=== PATIENT | female | born 1955 | race Caucasian/White ===

== ENCOUNTER → 2020-01-09 16:00 | Outpatient (BNVA) | payer BC, SELFPAY | PROVIDERS: Family Provider Internal Medicine; PCP Internal Medicine; Visit Provider Internal Medicine | DX: E78.5 Hyperlipidemia, unspecified (principal); I10 Essential (primary) hypertension; K75.81 Nonalcoholic steatohepatitis (NASH); E03.9 Hypothyroidism, unspecified | CPT/HCPCS: 80053; 80061; 84443; 85025 ==

== ENCOUNTER 2020-01-25 14:37 | Outpatient (CLI) | payer BC, SELFPAY ==
--- NOTE | 2020-01-25 14:42 | MM_ITS ---
WS: [id number] BILATERAL SCREENING DIGITAL MAMMOGRAM WITH CAD HISTORY: SCREENING COMPARISON: 09/20/2018, 09/04/2017, 02/16/2013 Bilateral CC and MLO views submitted. Computer aided detection analyzed. Breast composition: There are scattered areas of fibroglandular density. No suspicious masses, microc alcifications or architectural distortion. Stable scattered asymmetries and calcifications. No suspic ious mass. MM/[place] [id number] IMPRESSION: BI-RADS: 2-Benign FOLLOW UP: 1 Year Follow-up
== END 2020-01-25 14:38 | disposition home or self-care (01) ==
LOC: RADSHAW 14:41
PROVIDERS: Family Provider Internal Medicine; PCP Internal Medicine; Visit Provider Internal Medicine
DX: Z12.31 Encounter for screening mammogram for malignant neoplasm of breast (principal)
CPT/HCPCS: 77067

== ENCOUNTER → 2020-02-15 09:08 | Outpatient (BNVA) | payer BC, SELFPAY | PROVIDERS: Family Provider Internal Medicine; PCP Internal Medicine; Visit Provider Internal Medicine | DX: E78.5 Hyperlipidemia, unspecified (principal); I10 Essential (primary) hypertension; K75.81 Nonalcoholic steatohepatitis (NASH); E03.9 Hypothyroidism, unspecified; R74.8 Abnormal levels of other serum enzymes; R53.83 Other fatigue | CPT/HCPCS: 80053 ==

== ENCOUNTER 2020-03-02 11:22 | Outpatient (CLI) | payer BC, SELFPAY ==
[2020-03-02 12:39] LABS: Creatine Phosphokinase 59 U/L (26-192); Ferritin 412 ng/mL (15-150)
[2020-03-02 13:13] LABS: Erythrocyte Sedimentation Rate 37 mm/hr (0-15)
[2020-03-02 13:42] LABS: Hepatitis A Antibody IgM Non-Reactive (Nonreactive); Hepatitis B Core AB, Total Non-Reactive (Nonreactive); Hepatitis B Surface AB 18.3 (0-8.5); Hepatitis B Surface Antigen Non-Reactive (Nonreactive); Hepatitis C Virus Antibody Non-Reactive (Nonreactive)
[2020-03-02 14:20] LABS: Tumor Marker Alpha Fetoprotein 10.2 ng/mL (0-8.3)
[2020-03-05 12:21] LABS: COMPLEMENT COMPONENT C3C 149 mg/dL (83-193); COMPLEMENT COMPONENT C4C 25 mg/dL (15-57); COMPLEMENT, TOTAL (CH50) 51 U/mL (31-60)
[2020-03-05 13:17] LABS: Lyme AB Screen <0.90 index
[2020-03-05 14:17] LABS: CENTROMERE B ANTIBODY <1.0 NEG AI (<1.0 NEG); JO-1 ANTIBODY <1.0 NEG AI (<1.0 NEG); RNP ANTIBODY <1.0 NEG AI (<1.0 NEG); SCL-70 ANTIBODY <1.0 NEG AI (<1.0 NEG); SJOGREN'S ANTIBODY (SS-A) <1.0 NEG AI (<1.0 NEG); SM ANTIBODY <1.0 NEG AI (<1.0 NEG)
[2020-03-05 14:46] LABS: Alpha 1 Antitrypsin 223 mg/dL (83-199); Ceruloplasmin 34 mg/dL (18-53)
[2020-03-05 17:13] LABS: E. Chaffeensis AB IGG <1:64; E. Chaffeensis AB IGM <1:20
[2020-03-06 14:22] LABS: ANA SCREEN, IFA NEGATIVE (NEGATIVE); THYROID PEROXIDASE ANTIBODIES <1 IU/mL (<9)
[2020-03-06 16:47] LABS: RMSF IGG NOT DETECTED; RMSF IGM NOT DETECTED
[2020-03-06 23:57] LABS: DNA AB (DS) CRITHIDIA,IFA NEGATIVE (NEGATIVE)
== END 2020-03-02 11:23 | disposition home or self-care (01) ==
LOC: LAB 11:41
PROVIDERS: PCP Internal Medicine; Visit Provider Internal Medicine
DX: R74.0 Nonspecific elevation of levels of transaminase and lactic acid dehydrogenase [LDH] (principal)
CPT/HCPCS: 36415; 82103; 82105; 82390; 82550; 82728; 85651; 86618; 86666; 86705; 86706; 86709; 86757; 86803; 87340

== ENCOUNTER 2021-01-28 09:54 | Outpatient (CLI) | payer MEDICARE, BC, SELFPAY ==
--- NOTE | 2021-01-28 10:01 | MM_ITS ---
WS: [id number] SCREENING DIGITAL MAMMOGRAM WITH CAD HISTORY: SCREENING COMPARISON: 01/25/2020, July 23, 2018, 09/04/2017 Bilateral CC and MLO views submitted. Computer aided detection analyzed. Breast composition: There are scattered areas of fibroglandular density. Increasing density of an asy mmetry in the anterior upper outer quadrant of the RIGHT breast. There are additional bilateral benig n calcifications in each breast. MM/[place] [id number] IMPRESSION: BI-RADS: 0-Incomplete: Need additional imaging evaluation FOLLOW UP: Need Additional Imaging RIGHT breast: Spot compression views (CC and MLO). True ML. Ultrasound to follo w if abnormality persists.
== END 2021-01-28 09:55 | disposition home or self-care (01) ==
LOC: RADSHAW 10:00
PROVIDERS: PCP Internal Medicine; Visit Provider Internal Medicine
DX: Z12.31 Encounter for screening mammogram for malignant neoplasm of breast (principal)
CPT/HCPCS: 77067

== ENCOUNTER 2021-01-31 10:42 | Outpatient (CLI) | payer MEDICARE, BC, SELFPAY ==
--- NOTE | 2021-01-31 10:47 | US_ITS ---
WS: [id number] ADDITIONAL VIEWS RIGHT BREAST RIGHT breast ultrasound, limited HISTORY: RT BREAST ASYMMETRY COMPARISON: 01/28/2021, 01/25/2020, 09/20/2018, 09/04/2017 and 07/29/2016. Compression views right CC and MLO projection. True ML also submitted. Focal asymmetries persist in the upper-outer quadrant of the RIGHT breast. Partially obscured nodule measures 8 mm anteriorly near 10:00. There is dense fibroglandular tissue otherwise and benign calcif ications. RIGHT breast ultrasound, limited. At 9:00, 3 cm from the nipple is an ovoid cluster of cysts with septations. This area measures 1.0 x 0.7 x 0.4 cm. No increased vascularity. There are a few additional scattered similar areas of decreas ed echogenicity. No solid mass. US/US breast RT limited* [id number] IMPRESSION: BI-RADS: 3-Probably Benign FOLLOW-UP: 6 Month Follow-up Recommend diagnostic RIGHT mammogram and ultrasound follow-up in 6 months to fu rther evaluate these probably benign complex cystic areas.
== END 2021-01-31 10:43 | disposition home or self-care (01) ==
LOC: RADSHAW 10:45
PROVIDERS: PCP Internal Medicine; Visit Provider Internal Medicine
DX: N64.89 Other specified disorders of breast (principal)
CPT/HCPCS: 76642; 77065

== ENCOUNTER 2021-09-02 09:55 | Outpatient (CLI) | payer MEDICARE, BC, SELFPAY ==
--- NOTE | 2021-09-02 11:00 | US_ITS ---
WS: [id number] Right breast ultrasound, 09/02/2021 Clinical Data: R92.8 - Other abnormal and inconclusive findings on diagn... Comparison: Right breast ultrasound, 01/31/2021. Findings: The upper outer quadrant of the right breast from 9:00 to 10:00 was imaged 1-4 cm from the nipple. On ly dense breast tissue is seen. The cluster of cysts present on the prior exam were not identified. US/US breast RT limited* [id number] Impression: 1. Upper outer quadrant of the breast showed only dense tissue. 2. Negative for cysts or masses in the upper outer quadrant of the right breast . BIRADS: 2-Benign FOLLOW UP: 1 Year Follow-up
== END 2021-09-02 09:56 | disposition home or self-care (01) ==
LOC: RAD 09:59
PROVIDERS: PCP Internal Medicine; Visit Provider Internal Medicine
DX: R92.8 Other abnormal and inconclusive findings on diagnostic imaging of breast (principal); R92.2 Inconclusive mammogram
CPT/HCPCS: 76642; 77061

== ENCOUNTER 2021-09-02 10:02 | Outpatient (CLI) | payer MEDICARE, BC, SELFPAY ==
--- NOTE | 2021-09-02 10:14 | MM_ITS ---
WS: [id number] Right breast diagnostic 3D tomosynthesis digital mammogram, 09/02/2021 Clinical Data: R92.8 - Other abnormal and inconclusive findings on diagn... Comparison: 01/31/2021, 01/28/2021, 01/25/2020, 09/20/2018, 09/04/2017, 07/29/2016, 07/19/2015, 04/03/2014, 02/16, 01/28/2012, 01/07/2011, 11/08/2009, 09/20/2008, 09/27/2007, 08/28/2006. Findings: Right CC, right MLO, and right ML views of the right breast show heterogeneous dense tissue in the up per outer quadrant right breast. There are benign calcifications in this density. There are small lym ph nodes in the upper outer quadrant of the right breast. MM/[place] [id number] Impression: 1. Heterogeneous tissue in upper-outer quadrant right breast unchanged. 2. No evidence of any clustered calcifications or spiculated masses. 3. Right breast ultrasound will be performed. BIRADS: 2-Benign FOLLOW UP: See Report The CAD order checker was used.
--- NOTE | 2021-09-02 10:14 | US_ITS ---
WS: [id number] Right breast ultrasound, 09/02/2021 Clinical Data: R92.8 - Other abnormal and inconclusive findings on diagn... Comparison: Right breast ultrasound, 01/31/2021. Findings: The upper outer quadrant of the right breast from 9:00 to 10:00 was imaged 1-4 cm from the nipple. On ly dense breast tissue is seen. The cluster of cysts present on the prior exam were not identified. US/US breast RT limited* [id number] Impression: 1. Upper outer quadrant of the breast showed only dense tissue. 2. Negative for cysts or masses in the upper outer quadrant of the right breast . BIRADS: 2-Benign FOLLOW UP: 1 Year Follow-up
== END 2021-09-02 10:03 | disposition home or self-care (01) ==
LOC: RADSHAW 10:03
PROVIDERS: PCP Internal Medicine; Visit Provider Internal Medicine
DX: R92.8 Other abnormal and inconclusive findings on diagnostic imaging of breast (principal); R92.2 Inconclusive mammogram
CPT/HCPCS: 76642; 77061

== ENCOUNTER 2022-09-09 08:38 | Outpatient (CLI) | payer MEDICARE, BC, SELFPAY ==
--- NOTE | 2022-09-09 09:09 | MM_ITS ---
WS: [id number] Bilateral screening 3D tomosynthesis digital mammogram, 09/09/2022 Clinical Data: SCREENING Comparison: 09/02/2021, 01/31/2021, 01/28/2021, 01/25/2020, 09/20/2018, 09/04/2017, 07/29/2016, 07/19/2015, 04/03, 02/16/2013, 01/28/2012, 01/07/2011, 11/08/2009, 09/20/2008, 03/30/2008, 09/27/2007, 08/28/2006. Findings: The breast parenchymal pattern shows fibroglandular tissue. No spiculated masses or clustered calcifi cations are seen. There are no secondary signs of carcinoma. There are bilateral benign calcification s. MM/[place] [id number] Impression: 1. Negative bilateral mammogram unchanged. 2. Recommend annual screening mammograms. BIRADS: 1-Negative FOLLOW UP: 1 Year Follow-up The CAD checker dump [employer] was used.
== END 2022-09-09 08:39 | disposition home or self-care (01) ==
LOC: RAD 08:44
PROVIDERS: PCP Internal Medicine; Visit Provider Family Medicine
DX: Z12.31 Encounter for screening mammogram for malignant neoplasm of breast (principal)
CPT/HCPCS: 77063; 77067